=== PATIENT | female | born 1985 | race Two or more races ===

== ENCOUNTER 2018-12-12 21:52 | Emergency (ER) | payer BC ==
[~2018-12-12] VITALS: Ht 160 cm; Wt 62.9 kg
[~2018-12-12 21:52] MED LIST: ONDA4TAB6 PO
[2018-12-12 23:03] LABS: ALANINE AMINOTRANSFERASE 25 U/L (12-78); ALBUMIN 3.3 G/DL (3.4-5.0); ALBUMIN/GLOBULIN RATIO 0.7 (1.1-1.5); ALKALINE PHOSPHATASE 100 IU/L (46-116); ANION GAP 13 (8-16); ASPARTATE AMINO TRANSFERASE 20 U/L (10-37); BILIRUBIN,TOTAL 0.3 MG/DL (0.1-1.0); BLOOD UREA NITROGEN 16 MG/DL (7-18); BUN/CREATININE RATIO 18.6 (6.6-38.0); CALCIUM 8.7 MG/DL (8.5-10.1); CHLORIDE 106 MMOL/L (99-107); CREATININE 0.86 MG/DL (0.40-0.90); GLUCOSE 107 MG/DL (70-104); MAGNESIUM 2.2 MG/DL (1.5-2.4); POTASSIUM 3.1 MMOL/L (3.5-5.1); SODIUM 143 MMOL/L (135-145); TOTAL CARBON DIOXIDE 24.2 MMOL/L (24-32); TOTAL PROTEIN 7.8 G/DL (6.4-8.2); eGFR 76 ML/MIN
[2018-12-12 23:12] LABS: BASOPHILS % (AUTO) 0.2 % (0-1); EOSINOPHILS # (AUTO) 0.6 X10'3 (0-0.9); EOSINOPHILS % (AUTO) 6.1 % (0-6); HEMATOCRIT 39.4 % (35.0-45.0); HEMOGLOBIN 13.5 g/dl (12.0-16.0); LYMPHOCYTES # (AUTO) 2.3 X10'3 (1.1-4.8); LYMPHOCYTES % (AUTO) 22.1 % (21-51); MEAN CORPUSCULAR HEMOGLOBIN 30.8 PG (27.0-31.0); MEAN CORPUSCULAR HGB CONC 34.2 g/dL (33.0-36.5); MEAN CORPUSCULAR VOLUME 90.2 FL (78-98); MEAN PLATELET VOLUME 6.8 FL (7.4-10.4); MONOCYTES # (AUTO) 0.7 X10'3 (0-0.9); MONOCYTES % (AUTO) 6.5 % (2-12); NEUTROPHILS # (AUTO) 6.7 X10'3 (1.8-7.7); NEUTROPHILS % (AUTO) 65.1 % (42-75); PLATELET COUNT 515 X10'3 (140-440); RED BLOOD COUNT 4.37 X10'6 (4.20-5.60); RED CELL DISTRIBUTION WIDTH 12.9 % (11.5-14.5); WHITE BLOOD COUNT 10.3 X10'3 (4.5-11.0)
[2018-12-12 23:24] LABS: PARTIAL THROMBOPLASTIN TIME 32 SECONDS (22-32); PROTHROMBIN TIME 9.9 SECONDS (9.0-12.0)
[2018-12-13] MEDS ORDERED: ipratropium/albuterol 3ml nebule NEB ONE (00:20)
[2018-12-13] MEDS ORDERED: predniSONE 20 mg tablet PO ONE (00:20)
[2018-12-13] MEDS ORDERED: ALBU6.7H INH (00:25)
[2018-12-13] MEDS ORDERED: PRED20TA PO (00:25)
[2018-12-13] MEDS ORDERED: AZIT250T PO (00:25)
[2018-12-13] MEDS ORDERED: GUAI120015 PO (00:25)
[2018-12-13 01:38] VITALS: BP 122/71
== END 2018-12-13 01:41 | disposition home or self-care (01) ==
LOC: ER 21:53
DX: J20.9 Acute bronchitis, unspecified (principal); J45.901 Unspecified asthma with (acute) exacerbation; F17.200 Nicotine dependence, unspecified, uncomplicated; Z88.6 Allergy status to analgesic agent; Z88.1 Allergy status to other antibiotic agents; Z88.2 Allergy status to sulfonamides; Z88.8 Allergy status to other drugs, medicaments and biological substances
CPT/HCPCS: 36415; 71045; 80053; 83605; 83735; 84145; 85025; 85610; 85730; 87040; 94640; 94760; 99284; J7512

== ENCOUNTER 2024-09-30 18:31 | Emergency (ER) | payer BC ==
[~2024-09-30] VITALS: Ht 157.5 cm; Wt 69.9 kg
[~2024-09-30 18:31] MED LIST changes: +ALBU6.7H14 INH; +GUAI120015 PO
[2024-09-30 19:38] LABS: BASOPHILS % (AUTO) 0.1 % (0-1); EOSINOPHILS % (AUTO) 0.2 % (0-6); HEMATOCRIT 40.7 % (35.0-45.0); HEMOGLOBIN 13.9 g/dl (12.0-16.0); LYMPHOCYTES # (AUTO) 1.5 X10'3 (1.1-4.8); MEAN CORPUSCULAR HEMOGLOBIN 30.7 PG (27.0-31.0); MEAN CORPUSCULAR HGB CONC 34.1 g/dL (33.0-36.5); MEAN PLATELET VOLUME 7.2 FL (7.4-10.4); MONOCYTES # (AUTO) 0.6 X10'3 (0-0.9); NEUTROPHILS # (AUTO) 10.4 X10'3 (1.8-7.7); NEUTROPHILS % (AUTO) 82.7 % (42-75); PLATELET COUNT 359 X10'3 (140-440); RED BLOOD COUNT 4.52 X10'6 (4.20-5.60); RED CELL DISTRIBUTION WIDTH 13.5 % (11.5-14.5); WHITE BLOOD COUNT 12.5 X10'3 (4.5-11.0)
[2024-09-30 19:42] LABS: ALBUMIN 3.7 G/DL (3.4-5.0); ANION GAP 13 (8-16); BLOOD UREA NITROGEN 16 MG/DL (7-18); BUN/CREATININE RATIO 18.8 (10.0-20.0); CALCIUM 9.5 MG/DL (8.5-10.1); CHLORIDE 104 MMOL/L (99-107); CREATININE 0.85 MG/DL (0.40-0.90); GLUCOSE 110 MG/DL (70-104); POTASSIUM 3.7 MMOL/L (3.5-5.1); SODIUM 139 MMOL/L (135-145); TOTAL CARBON DIOXIDE 22.1 MMOL/L (24-32); eCRCL 70 ML/MIN; eGFR 74 ML/MIN
[2024-09-30 22:21] VITALS: BP 141/89; PULSE 150; RESP 16; O2SAT 99
[2024-09-30] MEDS ORDERED: DOXY-1 PO (23:12)
[2024-09-30] MEDS: LIDOcaine 1% W/epiNEPHrine 1:100,000 20ml vial SQ ONE (23:26)
[2024-10-01 00:25] VITALS: TEMP 98.5
== END 2024-10-01 00:26 | disposition home or self-care (01) ==
LOC: ER 18:32
DX: L02.211 Cutaneous abscess of abdominal wall (principal); Z88.8 Allergy status to other drugs, medicaments and biological substances; Z88.2 Allergy status to sulfonamides; Z88.1 Allergy status to other antibiotic agents; Z79.899 Other long term (current) drug therapy
CPT/HCPCS: 10060; 36415; 80048; 83605; 84145; 85025; 87040; 93005; 99284; A6407; A6449

== ENCOUNTER 2024-10-03 09:31 | Emergency (ER) | payer BC ==
[~2024-10-03] VITALS: Ht 157.5 cm; Wt 70.5 kg
[~2024-10-03 09:31] MED LIST changes: +DOXY-1 PO
[2024-10-03 10:07] VITALS: BP 149/74; PULSE 92; TEMP 98.2; O2SAT 99
[2024-10-03 12:18] VITALS: RESP 16
== END 2024-10-03 12:19 | disposition home or self-care (01) ==
LOC: ER 09:31
DX: L02.211 Cutaneous abscess of abdominal wall (principal); L03.311 Cellulitis of abdominal wall; Z79.899 Other long term (current) drug therapy; Z88.1 Allergy status to other antibiotic agents; Z88.2 Allergy status to sulfonamides; Z88.8 Allergy status to other drugs, medicaments and biological substances
CPT/HCPCS: 99281; A6266

== ENCOUNTER 2024-10-06 10:21 | Emergency (ER) | payer BC ==
[~2024-10-06] VITALS: Ht 157.5 cm; Wt 70.5 kg
[2024-10-06 10:36] VITALS: BP 127/65; PULSE 103; RESP 16; O2SAT 100
[2024-10-06 11:45] VITALS: TEMP 97.2
== END 2024-10-06 11:53 | disposition home or self-care (01) ==
LOC: ER 10:22
DX: L02.211 Cutaneous abscess of abdominal wall (principal); Z88.8 Allergy status to other drugs, medicaments and biological substances; Z88.2 Allergy status to sulfonamides; Z79.899 Other long term (current) drug therapy
CPT/HCPCS: 99281